=== PATIENT | female | born 1935 | race Caucasian/White ===

== ENCOUNTER 2019-03-02 12:58 | Observation (INO) | payer MEDICARE, BC ==
--- NOTE | 2019-03-02 14:02 | CT ---
EXAM: CT Pelvis WO Con PROVIDED CLINICAL HISTORY: Pain status post injury COMPARISON: None FINDINGS: There is a comminuted fracture of the left acetabulum without significant displacement. This involves the anterior and posterior españa of the acetabulum as well as the quadrilateral plate. There is remote fracture involving the left inferior pubic ramus as well as a acute nondisplaced fracture post erior to this. There is also an acute nondisplaced fracture of the right inferior pubic ramus. Postoperative changes of prior ORIF intertrochanteric fracture demonstrated without evidence for hard martinez loosening or migration. No additional acute fracture is evident. Hematoma is seen involving the left obturator internus muscle. IMPRESSION: 1. Complex left acetabular fracture, having a morphology most similar to T-shaped fracture. 2. Nondisplaced right inferior pubic ramus fracture.
--- NOTE | 2019-03-02 14:16 | CT ---
CT LUMBAR SPINE: 03/02/2019 HISTORY: Fall, trauma, pain. COMPARISON: None. TECHNIQUE: Axial CT imaging obtained at 2.5 mm intervals through the lumbar spine without contrast. Coronal and sagittal reformatted imaging obtained. FINDINGS: There is scattered atherosclerotic calcification of the abdominal aorta and its branches, not well ch aracterized on noncontrast enhanced imaging. Partially imaged sigmoid diverticulosis noted. There is an incompletely imaged exophytic lesion emanating from the mid pole of the left kidney with Hounsfield units in the 40 range. This should be further evaluated with a follow-up renal ultrasound. A solid mass within the left kidney is a possibility, measuring up to at least 1.1 cm. There is mild stranding of the left partially visualized gluteal musculature and there is mild strand ing in the region of the left hemipelvis, only partially imaged on this examination. This could be re lated to pelvic injury, for which a dedicated CT examination of the pelvis is advised. There is no significant anterolisthesis or retrolisthesis noted within the lumbar spine. Evaluation f or central canal and/or neural foraminal stenosis is limited on routine CT exam. T12-L1: No osseous cause of significant central canal or neural foraminal stenosis. L1-L2: Bilateral facet hypertrophy. Disk space narrowing and vacuum disk formation. Disk bulge noted with a foraminal and post foraminal disk protrusion on the left. Probable mild/moderate central canal stenosis and bilateral mild neural foraminal stenosis. L2-L3: Disk space narrowing with degenerative endplate change and vacuum disk formation. Mild disk bu lge. Mild bilateral facet hypertrophy. Moderate neural foraminal stenosis on the right. No significan t left neural foraminal stenosis. Mild central canal stenosis. L3-L4: Mild disk bulge. Disk space narrowing and vacuum disk formation. Bilateral facet hypertrophy. Moderate right neural foraminal stenosis. L4-L5: Prominent bilateral facet hypertrophy with hypertrophy of the ligamentum flavum. Disk bulge pr esent within vacuum disk formation. Mild bilateral neural foraminal stenosis. Moderate/severe central canal stenosis. L5-S1: Bilateral facet hypertrophy. Disk space narrowing with vacuum disk formation and anterior oste ophyte formation. Mild bilateral neural foraminal stenosis. No displaced fracture or evidence of dislocation is seen within the lumbar spine. Partially imaged hi atal hernia present. IMPRESSION: 1. Multilevel lumbar spine degenerative change with no acute fracture or dislocation within the lumba r spine. 2. Possible solid lesion associated with the left kidney for which follow-up renal ultrasound is advi sed. 3. Stranding of the gluteal musculature with stranding of the anterior aspect of the left hemipelvis. This may be associated with a nonvisualized fracture of the pelvis for which CT examination of the p danielle is recommended. CODE T POS: TIMA
[2019-03-02 14:44] LABS: #Eosinphils 0.1 thou/uL (0.0-0.7); #Monocytes 0.7 thou/uL (0.11-0.59); #Neutrophils 5.8 thou/uL (1.40-6.50); %Basophils 0.6 % (0.0-1.0); %Eosinophils 1.1 % (0.0-10.0); %Lymphocytes 12.6 % (21.0-51.0); %Monocytes 9.1 % (0.0-10.0); %Neutrophils 76.5 % (42.0-75.0); Hemoglobin 12.8 g/dL (12.0-16.0); Mean Corpuscular HGB CONC 33.6 g/dL (32.0-36.0); Mean Corpuscular Hemoglobin 31.5 pg (27.0-31.0); Mean Corpuscular Volume 93.6 fL (78.0-98.0); Mean Platelet Volume 10.3 fL (7.4-10.4); Platelet Count 138 thou/uL (130-400); RBC Distribution Width 13.9 % (11.5-14.5); Red Blood Cell (RBC) Count 4.06 mill/uL (4.20-5.40); White Blood Cell (WBC) Count 7.5 thou/uL (4.8-10.8)
--- NOTE | 2019-03-02 14:47 | RAD ---
EXAM: XR Chest 1 View Portable PROVIDED CLINICAL HISTORY: Pain with movement COMPARISON: None FINDINGS: Cardiac and mediastinal silhouette. Vascular calcification is demonstrated. No focal consolidation, p leural fluid or pneumothorax apparent. The bony thorax appears grossly intact. IMPRESSION: No evidence for an acute cardiopulmonary process.
[2019-03-02 14:51] LABS: INR-International Normal Ratio 1.1; PTT 30.5 SEC (22.9-36.1); Prothrombin Time 14.1 SEC (12.0-14.7)
[2019-03-02 16:02] LABS: ALT (SGPT) 14 U/L (8-55); AST (SGOT) 25 U/L (5-34); Albumin 4.2 g/dL (3.4-4.8); Alkaline Phosphatase 79 U/L (40-110); Anion Gap 15 mmol/L (10-20); BUN (Urea Nitrogen) 15 mg/dL (9.8-20.1); Calc. Creatinine Clearance 0 mL/min (70-130); Calcium 9.4 mg/dL (7.8-10.44); Carbon Dioxide 24 mmol/L (23-31); Chloride 107 mmol/L (98-107); Estimated GFR-MDRD 59; Globulin 2.8 g/dL (2.4-3.5); Glucose 98 mg/dL (83-110); Potassium 3.6 mmol/L (3.5-5.1); Sodium 142 mmol/L (136-145)
[2019-03-02] MEDS ORDERED: Dextrose 50% Abboject 50 ML SYRINGE SLOW IVP PRN (16:31)
[2019-03-02] MEDS ORDERED: Dextrose 5% in Water 1,000 ML IV PRN (16:31)
[2019-03-02] MEDS ORDERED: Ondansetron ODT 4 MG TAB PO PRN (16:31)
[2019-03-02] MEDS ORDERED: traMADol HCl 50 MG TAB PO PRN ×2 (16:34)
[2019-03-02 16:58] LABS: Magnesium 1.6 mg/dL (1.6-2.6); Phosphorus 2.9 mg/dL (2.3-4.7)
[2019-03-02] MEDS ORDERED: PHOS-NAK 1 PKT PACK PO SCH (17:15)
[2019-03-02 18:07] VITALS: BMI 21.7
[2019-03-02] MEDS: Acetaminophen 500 MG TAB PO SCH ×2 (18:21→23:47)
--- NOTE | 2019-03-02 18:30 | HP ---
TRAUMA SURGEON: Dr. Pena. CONSULTING PHYSICIAN: Dr. Guerrero. HISTORY OF PRESENT ILLNESS: The patient is an 84-year-old female who presented to the emergency department via EMS due to persistent left-sided hip pain. The patient has a history of dementia, but at bedside reports mentation is at baseline. He also states that the patient "slipped out of bed" two mornings ago. They awaited to come to the emergency department because they treated it with Tylenol and thought that the pain would improve. They presented today due to persistent and worsening pain especially with ambulation. The patient does have a history of a recent hip surgery in December. At the time of my evaluation, the patient was pleasant and mentation was at her baseline. She reported that she had no pain in her hip at that time. She had not received any pain medications from the emergency department, but she also had not tried to ambulate. She denied numbness and tingling in that lower extremity. Dr. Guerrero saw the patient and recommended nonoperative management and admission for pain control and placement at a rehab facility. She does have a left acetabular and left inferior pubic rami fracture. REVIEW OF SYSTEMS: All additional 10-point review of systems negative except as indicated above. PAST MEDICAL HISTORY: Hypertension, IBS, dementia, and hyperlipidemia. PAST SURGICAL HISTORY: The patient has had a hysterectomy and a recent left hip surgery in December 2018. SOCIAL HISTORY: The patient lives at home with her . She was ambulating without difficulty before this. He reports no tobacco, drug, or alcohol use. MEDICATIONS: 1. Amlodipine 2.5 at night. 2. Aspirin in the morning. 3. Atorvastatin 20 at night. 4. Cyproheptadine 4 mg at night. 5. Hyoscyamine ER 0.375 mg in the morning and at night. 6. Sertraline 100 mg in the morning. 7. Spironolactone 25 mg daily. ALLERGIES: NO KNOWN DRUG ALLERGIES. PHYSICAL EXAMINATION: VITAL SIGNS: The patient is afebrile and hemodynamically stable. She is not tachycardic or tachypneic. She is saturating greater than 92% on room air. PRIMARY SURVEY: Airway intact. Adequate breath sounds bilaterally. 2+ pulses in the bilateral radials, femorals, and DPs. GCS is 14 to 15, this is her baseline, gross motor and sensation are intact. No lacerations, bruising, or external bleeding noted. SECONDARY SURVEY: HEAD: Normocephalic and atraumatic. No gross palpable skull deformities or tenderness. HEENT: Pupils 3 to 2, equal, round, and reactive to light bilaterally. ENT: No hemotympanum. No epistaxis. No septal hematoma. Midface stable to manipulation. No blood in the oropharynx. Dentition is intact. No anterior neck injury/crepitus/tenderness. C-SPINE: No step-offs or deformities. Nontender. C-collar not in place. CHEST: Nontender. No crepitus. No abrasions or ecchymosis. Equal chest movement. ABDOMEN: Soft, nontender, and nondistended. PELVIS: Stable to palpation. Nontender. No abrasions or ecchymosis. RECTAL: Deferred. GENITOURINARY: Deferred. EXTREMITIES: No gross deformities, abrasions, or ecchymosis noted. Pain and tenderness to the left groin. There is a well-healed surgical scar on the left lateral hip. 2+ pulses in the bilateral DPs. BACK/SPINE: No step-offs, deformities, or tenderness to palpation of the thoracic or lumbar spine. No abrasions or ecchymosis noted. NEUROLOGIC: 5/5 strength in bilateral commercial loan officer, plantar flexion, and dorsiflexion. Gross normal sensation x4 extremities. LABORATORY FINDINGS: White count 7.5, hemoglobin 12.8, hematocrit 38.0, platelets 138. INR 1.1. Sodium 142, magnesium 3.6, chloride 107, bicarb 24, BUN 15, creatinine 0.90, glucose 98, phosphorus 2.9, and magnesium 1.6. DIAGNOSTIC FINDINGS: CT scan of the lumbar spine demonstrates multiple lumbar spine degenerative changes with no acute fracture or dislocation within the lumbar spine, possible solid lesion associated with left kidney for which followup renal ultrasound is advised. Stranding of the gluteal muscle with stranding of the anterior aspect of the left hemipelvis, this may be associated when nonvisualized fracture of the pelvis for which CT evaluation of the pelvis is recommended. CT scan of the pelvis demonstrates complex left acetabular fracture, having a morphology most similar to T-shaped fracture, nondisplaced right inferior pubic rami fracture. Chest x-ray demonstrates no evidence for an acute cardiopulmonary process. ASSESSMENT: 1. Status post mechanical fall from bed, delayed presentation. 2. Left acetabular fracture, nonoperative. 3. Right inferior pubic rami fracture, nonoperative. 4. Left-sided kidney lesion, no acute intervention needed. 5. History of hypertension, irritable bowel syndrome, dementia, and hyperlipidemia. PLAN: The patient will be admitted to the surgical floor as of tomorrow. She will work with Physical and Occupational Therapy and we will determine if she needs short-term placement in acute rehab facility versus home with home physical therapy. The patient's at bedside reports he prefers taking the patient home with home PT. We will provide p.o. pain medications, both scheduled and as needed. We will restart her all of her home medications as clinically indicated. The patient's reports that she gets up out of bed unassisted at night. I have asked the charge nurse to the place a bed alarm on the patient's bed when she arrives to the floor. The patient has received magnesium and K-Phos today for mild hypokalemia and hypophosphatemia. This patient was discussed with Dr. Pena before this dictation. Job ID: [id number]
[2019-03-02] MEDS: Senokot S 8.6-50 MG TAB PO SCH (20:06)
[2019-03-02] MEDS: Melatonin 3 MG TAB PO SCH (20:07)
[2019-03-02] MEDS: Gabapentin 100 MG CAP PO SCH (20:07)
--- NOTE | 2019-03-02 21:04 | CON ---
DATE OF CONSULTATION: 03/02/2019 HISTORY OF PRESENT ILLNESS: Ms. Gilliland is an 84-year-old female, who presents with left hip pain. The patient last year had a fall, sustaining intertrochanteric hip fracture [place] [facility] for which she underwent surgery. The patient currently has history of dementia. Her is at bedside. She is hard of hearing. She did live in the area for many years. The patient fell on Sunday morning, yesterday on 03/01 about 3 in the morning, unable to mobilize, and presents for her secondary pain. PAST MEDICAL HISTORY: Includes hypertension, depression, dementia, and inflammatory bowel disease. PAST SURGICAL HISTORY: Includes left hip intertrochanteric hip nailing, short nail. MEDICATIONS: Include, 1. Amlodipine. 2. Aspirin. 3. Atorvastatin. 4. Sertraline. 5. Spironolactone. 6. Cyproheptadine. 7. Hyoscyamine. 8. Melatonin. ALLERGIES: NO KNOWN DRUG ALLERGIES. SOCIAL HISTORY: The patient's is at bedside. She has history of dementia. They live in town. Their daughter lives in the [facility]. Nonsmoker. No alcohol. Retired. REVIEW OF SYSTEMS: Noncontributory. PHYSICAL EXAMINATION: VITAL SIGNS: The patient's blood pressure is 149/74, pulse 86, respiratory rate 16, temperature 98.5, and 95% on room air. GENERAL: Alert and oriented female, in no acute distress. EXTREMITIES: Left lower extremity shows pain with internal and external rotation. NEUROLOGIC: The patient is neurovascularly intact distally. Brisk cap refill. The patient has pain with AP and lateral compression of her pelvis. DIAGNOSTIC STUDIES: CT scan of her left hip shows a varus position of femoral neck for intertrochanteric hip fracture without gross failure, incomplete union with an anterior column posterior wall acetabular T-type fracture. IMPRESSION: 1. Left acetabular fracture. 2. Status post intramedullary nailing for intertrochanteric hip fracture varus position. ASSESSMENT AND PLAN: The patient will be touchdown weightbearing to her left side on admission per Trauma for help with PT, mobilization, likely snf for period of time. The patient has confusion. The is likely unable to take care of her on his own based on her confusion, inability to mobilize her, as well as for pain control. She will be admitted by Trauma. The patient will be followed in-house by Orthopedics. Job ID: [id number]
--- NOTE | 2019-03-03 02:13 | PRG ---
DATE OF SERVICE: 03/02/2019 SUBJECTIVE: The patient was seen during evening rounds on the surgical floor, resting comfortably, in no acute distress. OBJECTIVE: VITAL SIGNS: Stable, afebrile. GENERAL: Elderly female, well appearing, resting comfortably in bed, in no acute distress. RESPIRATORY: Equal chest rise and fall, no respiratory distress. ASSESSMENT: 1. Status post mechanical fall from bed, delayed presentation. 2. Left acetabular fracture, non-operative. 3. Right inferior pubic rami fracture, non-operative. 4. Left-sided kidney lesion, no acute intervention needed. 5. History of hypertension. 6. Irritable bowel syndrome. 7. Dementia. 8. Hyperlipidemia. PLAN: Continue supportive care. We will have Physical and Occupational Therapy work with the patient. The patient is pending placement to inpatient rehab facility versus home with home physical therapy. Job ID: [id number]
[2019-03-03] MEDS: Acetaminophen 500 MG TAB PO SCH ×3 (05:14→17:54)
[2019-03-03] MEDS ORDERED: Hyoscyamine Sulfate ER 0.375 mg Tablet PO PRN (06:54)
[2019-03-03] MEDS ORDERED: Prevnar 13-Val Conj/PF 0.5 ML SYRINGE IM ONE (09:00)
[2019-03-03] MEDS: Aspirin 81 mg Enteric Coated Tablet PO SCH ×2 (09:00→20:03)
[2019-03-03] MEDS: Gabapentin 100 MG CAP PO SCH ×3 (09:00→20:03)
[2019-03-03] MEDS ORDERED: FLU VACC TS2019-20(65YR UP)/PF 180 MCG/0.5 ML SYRINGE IM ONE (09:00)
[2019-03-03] MEDS: Magnesium Oxide 400 MG TAB PO SCH (09:01)
[2019-03-03] MEDS: Spironolactone 25 MG TAB PO SCH (09:01)
[2019-03-03] MEDS: Senokot S 8.6-50 MG TAB PO SCH ×2 (09:02→20:03)
[2019-03-03] MEDS: Polyethylene Glycol 3350 17 GM Packet PO SCH (09:02)
--- NOTE | 2019-03-03 10:33 | CON ---
DATE OF CONSULTATION: HISTORY OF PRESENT ILLNESS: Ms. Gilliland is an 84-year-old female with dementia, slipped out of her bed and sustained a left acetabular fracture. She is resting comfortably in bed, unaware of her surroundings. PHYSICAL EXAMINATION: GENERAL: Alert and oriented to person, but not time or place. VITAL SIGNS: 98.1, 79, 14, 177/68. EXTREMITIES: Left lower extremity, general pain with external rotation. Well-healed scar. Neurovascularly intact distally. IMPRESSION: Left anterior column posterior wall acetabular fracture. ASSESSMENT AND PLAN: The patient will be touchdown weightbearing. We will need to assess her ability to stay with touchdown weightbearing. We will need post ambulation films to ensure no displacement of the acetabulum. She will need transfer to longterm facility. Job ID: [id number] [facility]
--- NOTE | 2019-03-03 13:02 | PRG ---
DATE OF SERVICE: 03/03/2019 SUBJECTIVE: The patient was seen this morning, sitting up in bed with no signs of acute distress. She reported her pain is well controlled and she was waiting for breakfast, although she is not much of a breakfast person usually. She did asks where her was and was expecting him to come. She does not remember why she was in the hospital and this is her baseline mentation. OBJECTIVE: VITAL SIGNS: Temperature 98.1, pulse 79, respirations 14, oxygen saturation 96% on room air, blood pressure 122/68. GENERAL: Well-appearing elderly female, sitting up in bed with no signs of acute distress. PULMONARY: Equal chest rise and fall. Clear breath sounds bilaterally. No signs of acute respiratory distress. CARDIAC: Regular rate and rhythm. No murmurs, gallops, or rubs. GI: Abdomen is soft, nontender, nondistended. EXTREMITIES: 2+ pulses in all extremities. Gross and motor sensation are intact. No significant swelling noted. NEURO: GCS is 14, -1 for verbal. This is the patient's baseline and she has dementia. LABORATORY FINDINGS: There are no new laboratory findings to report. ASSESSMENT: 1. Status post fall from bed, delayed presentation. 2. Left acetabular fracture, nonoperative. 3. Right inferior pubic rami fracture, nonoperative. 4. History of dementia, IBS, hypertension, left hip surgery in December. PLAN: Continue current diet and pain regimen. Continue physical and occupational therapy. Continue all home medications. The patient will be placed on aspirin 81 mg b.i.d. for DVT prophylaxis while she is in the hospital. We are pending physical therapy and insurance authorization and she will likely need placement in a rehab facility. If she does exceptionally well, then we could consider home with home PT. We will defer that to PT evaluation. The patient does have a left kidney lesion and ultrasound is recommended. We will pass this information on to the family and they can follow up with her PCP. This patient is ready for discharge at this time. We are pending PT evaluation as well as insurance authorization. This patient was seen and examined by Dr. Ojeda and myself this morning during rounds. Job ID: [id number] [facility]
[2019-03-03] MEDS: Melatonin 3 MG TAB PO SCH (20:04)
[2019-03-03] MEDS ORDERED: Amlodipine 5 MG TAB PO SCH (21:00)
[2019-03-03] MEDS ORDERED: Cyproheptadine 4 MG TAB PO SCH (21:00)
[2019-03-03] MEDS ORDERED: Atorvastatin Calcium 20 MG TAB PO SCH (21:00)
--- NOTE | 2019-03-04 00:01 | PRG ---
DATE OF SERVICE: 03/03/2019 SUBJECTIVE: The patient was seen this evening during rounds, resting comfortably in hospital bed. The patient arouses easily and voices no complaints. The patient's vital signs are stable and the patient is afebrile. ASSESSMENT: 1. Status post fall from bed, delayed presentation. 2. Left acetabular fracture, nonoperative. 3. Right inferior pubic rami fracture, nonoperative. 4. History of dementia, irritable bowel syndrome, hypertension, left hip surgery in December. PLAN: Continue supportive care. Continue physical and occupational therapy. The patient is pending placement to inpatient rehab. Job ID: [id number]
[2019-03-04] MEDS: Acetaminophen 500 MG TAB PO SCH ×3 (02:23→12:17)
[2019-03-04] MEDS: Senokot S 8.6-50 MG TAB PO SCH (08:33)
[2019-03-04] MEDS: Gabapentin 100 MG CAP PO SCH (08:33)
[2019-03-04] MEDS: Magnesium Oxide 400 MG TAB PO SCH (08:33)
[2019-03-04] MEDS: Polyethylene Glycol 3350 17 GM Packet PO SCH (08:33)
[2019-03-04] MEDS: Spironolactone 25 MG TAB PO SCH (08:33)
[2019-03-04] MEDS: Aspirin 81 mg Enteric Coated Tablet PO SCH (08:33)
--- NOTE | 2019-03-04 11:28 | RAD ---
EXAM: XR Pelvis Minimum 3 Views DATE: 03/04/2019 10:52 AM INDICATION: Follow-up acetabular fracture COMPARISON: CT the pelvis dated March 02, 2019 FINDING: Since the comparison examination the left anterior column and anterior wall acetabular frac ture is unchanged in position. Healed deformity involving the left pubic body and left inferior pubic ramus is stable appearing. Moderate degenerative change of both SI joints. There is stable ceph alomedullary device instrumenting an incompletely healed left intertrochanteric hip fracture. IMPRESSION:Stable nondisplaced left anterior column and left anterior wall fracture. Stable instrumen vincent, incompletely healed left intertrochanteric hip fracture. Chronic healed deformity involving the left pubic body and left inferior pubic ramus.
[2019-03-04 14:57] VITALS: BP 113/64; TEMP 98.3
--- NOTE | 2019-03-05 02:19 | DIS ---
DATE OF ADMISSION: 03/02/2019 DATE OF DISCHARGE: 03/04/2019 ADMISSION DIAGNOSES: 1. Status post fall from a bed. 2. Left acetabular fracture, nondisplacement, conservative treatment. 3. Right inferior pubic rami fracture, conservative treatment. 4. History of dementia, irritable bowel syndrome, hypertension, and left hip surgery. DISCHARGE DIAGNOSES: 1. Status post fall from a bed. 2. Left acetabular fracture, nondisplacement, conservative treatment. 3. Right inferior pubic rami fracture, conservative treatment. 4. History of dementia, irritable bowel syndrome, hypertension, and left hip surgery. CONSULTING PHYSICIAN: Dr. Gerardo Guerrero. PROCEDURE: None. HOSPITAL COURSE: Ms. Gilliland is an 84-year-old female with severe dementia, status post fall from the bed. She sustained left acetabular fracture nondisplacement. Orthopedics, Dr. Guerrero, recommended non-operation treatment. The patient is able to work with PT/OT. Pain is well controlled. She tolerated with her regular diet. Her vital signs are stable. Her bowel regimen is normal. She is accepted to go to rehabilitation facility today. PHYSICAL EXAMINATION: GENERAL: The patient is lying in bed comfortable with no acute respiratory distress. Mental status is on her baseline. Oriented to person, but not to time and to place. VITAL SIGNS: Temperature 98.6, heart rate 75, respiratory rate 18, O2 saturation 91% on room air, and blood pressure 122/70. LUNGS: Clear bilaterally. HEART: Regular rate and rhythm. ABDOMEN: Soft, nondistended. EXTREMITIES: Neurovascularly intact x4. NEUROLOGY: No focal neurology deficits. DISCHARGE DISPOSITION: Rehabilitation facility. DISCHARGE CONDITION: Fair. DISCHARGE INSTRUCTIONS: The patient is to take medication as directed. The patient is to have touchdown weightbearing on the left lower extremity. The patient encouraged working with PT/OT. The patient is to see Dr. Guerrero in 10 to 14 days. DISCHARGE MEDICATIONS: 1. Amlodipine. 2. Atorvastatin. 3. Flexeril. 4. Sertraline. 5. Tylenol. 6. Gabapentin. 7. Melatonin. 8. MiraLAX. 9. Senokot. 10. Aspirin. 11. Tramadol. Job ID: [id number]
== END 2019-03-04 15:14 ==
LOC: ERS 12:58 → SURG A 18:03
PROVIDERS: ADMIT Orthopaedic Surgery; ATTEND Orthopaedic Surgery
DX: S32.435A Nondisplaced fracture of anterior column [iliopubic] of left acetabulum, initial encounter for closed fracture (principal); S32.415A Nondisplaced fracture of anterior wall of left acetabulum, initial encounter for closed fracture; S32.425A Nondisplaced fracture of posterior wall of left acetabulum, initial encounter for closed fracture; S32.591A Other specified fracture of right pubis, initial encounter for closed fracture; N28.9 Disorder of kidney and ureter, unspecified; I10 Essential (primary) hypertension; K58.9 Irritable bowel syndrome, unspecified; F03.90 Unspecified dementia, unspecified severity, without behavioral disturbance, psychotic disturbance, mood disturbance, and anxiety; E78.5 Hyperlipidemia, unspecified; M47.816 Spondylosis without myelopathy or radiculopathy, lumbar region; Z79.82 Long term (current) use of aspirin; Z79.899 Other long term (current) drug therapy; Z98.890 Other specified postprocedural states; W06.XXXA Fall from bed, initial encounter
CPT/HCPCS: 71045; 72131; 72190; 72192; 80053; 83735; 84100; 85025; 85610; 85730; 86850; 86900; 86901; 93005; 94760; 97116 ×2; 97139 ×6; 97535; 99285; G0378 ×4; 36415; G0390